=== PATIENT | male | born 1955 | race African-American/Black ===

== ENCOUNTER 2019-02-23 09:58 | Emergency (ER) | payer OTHER, MEDICAID ==
[~2019-02-23] VITALS: Ht 182.9 cm; Wt 96.0 kg
[2019-02-23] MEDS ORDERED: ASPI-1159 PO (10:04)
[2019-02-23] MEDS ORDERED: AMLO2.5T45 PO (10:04)
[2019-02-23] MEDS ORDERED: ONDA4TAB5 PO (10:04)
[2019-02-23 10:32] LABS: BASOPHILS % 0.8 % (0.0-2.0); EOSINOPHILS % 0.5 % (0.0-5.0); HEMATOCRIT. 51.5 % (42.0-52.0); HEMOGLOBIN. 16.8 g/dL (14.0-18.0); LYMPHOCYTES % 11.7 % (20.0-50.0); MEAN CORPUSCULAR HEMOGLOBIN 25.3 pg (28.0-32.0); MEAN CORPUSCULAR VOLUME 77.6 fL (80.0-94.0); MONOCYTES % 6.7 % (2.0-8.0); NEUTROPHILS % 80.3 % (40.0-76.0); PLATELET 256 x1000/uL (130-400); RED BLOOD CELL COUNT 6.63 mill/uL (4.7-6.1); RED CELL DISTRIBUTION WIDTH 17.4 % (11.6-14.6)
[2019-02-23 10:34] LABS: CHLORIDE 103 mEq/L (98-107)
[2019-02-23] MEDS ORDERED: ASPIRIN 81MG TABLET PO ONE (11:30)
[2019-02-23] MEDS ORDERED: AMLODIPINE 2.5MG TABLET PO ONE (11:45)
[2019-02-23 11:59] LABS: PROTHROMBIN TIME 10.5 sec (9.6-11.0)
[2019-02-23 14:29] VITALS: BP 159/97
== END 2019-02-23 18:23 | disposition short-term general hospital (02) ==
LOC: ER 09:58 → CANBEDREQ 11:19 → ER 18:23
DX: I63.9 Cerebral infarction, unspecified (principal); I10 Essential (primary) hypertension; M24.542 Contracture, left hand; Z79.899 Other long term (current) drug therapy; Z86.73 Personal history of transient ischemic attack (TIA), and cerebral infarction without residual deficits
CPT/HCPCS: 36415; 71045; 84484; 93005; 99291